=== PATIENT | male | born 1950 | race Caucasian/White ===

== ENCOUNTER 2023-07-26 06:03 | Day surgery (SDC) | payer MEDICARE, OTHER, SELFPAY ==
--- NOTE | 2023-07-07 10:37 | CM ---
Patient is scheduled for an elective L TKR on 07/26/23- he is a same day patient. Spoke with patient prior to surgery. Introduced role of Orthopedic Navigator. Patient reports that he lives with his in a two story home. There are two steps to
enter and a flight of steps to the second floor. He currently functions independently. He has a cane and rolling walker from his prior TKR in 2020 (done at an outside facility). He has had [facility] services. PCP is Dr. Darci Velez.
Discussed orthopedic program and post surgical plans. Reviewed that he will have VN services initially (medicare.gov website and ratings reviewed) and will then start outpatient PT. Patient selects [facility] (face sheet faxed to [facility] to facilitate
confirmation of benefits) for his home care needs and will go to [facility] for outpatient PT.
Patient is in agreement with plan and states that his will be home with him.
Patient will complete online education.
Plan: Orthopedic Navigator will remain available to assist with the care of patient and will reassess discharge needs after surgery.
[2023-07-12 08:07] VITALS: BMI 28.6
[2023-07-12 08:51] LABS: Hematocrit 40.7 % (39.0-52.0); Hemoglobin 14.8 g/dL (13.0-18.0); Mean Corp Hgb Conc. 36.4 g/dL (33.0-37.0); Mean Corpuscular Hgb 34.4 pg (27.0-31.0); Mean Corpuscular Volume 94.7 fL (80.0-94.0); Mean Platelet Volume 9.9 fL (7.4-10.4); Platelet Count 225 10^3/uL (130-400); Red Cell Dist. Width 11.8 % (11.5-14.5); White Blood Cell Count 5.5 10^3/uL (4.8-10.8)
[2023-07-12 09:00] LABS: ALT (SGPT) 30 U/L (0-50); AST (SGOT) 32 U/L (17-59); Albumin 4.1 g/dl (3.5-5.0); Alkaline Phosphatase 61 U/L (38-126); Blood Urea Nitrogen 15 mg/dl (9-20); Calcium 10.1 mg/dl (8.4-10.2); Carbon Dioxide 26 mmol/L (22-30); Chloride 100 mmol/L (98-107); Estimated Creatinine Clearance 77 ml/min; Glucose 98 mg/dl (70-99); Potassium 4.6 mmol/L (3.5-5.1); Sodium 136 mmol/L (135-145); Total Bilirubin 1.1 mg/dl (0.2-1.3); Total Protein 6.6 g/dl (6.3-8.2); eGFR > 60.00
[2023-07-12 09:31] LABS: Glycohemoglobin (HgbA1c) 5.2 % (4.0-5.6)
[2023-07-12 15:26] VITALS: BMI 28.6
[2023-07-26] VITALS (17 sets, daily range): BP systolic 83–156; BP diastolic 61–98; BMI 28.6
[2023-07-26] MEDS: CELEBREX 200 MG PO (06:26)
[2023-07-26] MEDS: TYLENOL 650 MG PO (06:26)
[2023-07-26] MEDS: NORMOSOL-R 1000 IV ×2 (06:26→09:15)
--- NOTE | 2023-07-26 06:49 | W.DS.TRANS ---
Addendum entered and electronically signed by Felicia Harden PA-C 07/26/23 12:00:
[facility] provided Ultram RX
disregard oxy on med list
Original Note:
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
-
Discharge Instructions:
Sleep Apnea Risk Intermediate
Discharge Diagnosis/Procedures L NAM [facility]ran 07/26/23
Diet As tolerated
Activity With Walker
Driving Restrictions No driving
Other Services PT,[facility]
Instructions:
Stand-Alone Forms: SDS Total Hip and Knee D/C
Changes to Home Medications: Yes
Discharge Medications:
DC Medications w/original date entered in eReceipts
folic acid 1 mg tablet 1 mg PO DAILY 06/20/17
lisinopril 10 mg tablet 10 mg PO DAILY 06/20/17
methotrexate sodium 2.5 mg tablet 7.5 mg PO WEEKLY 06/20/17
finasteride 5 mg tablet 5 mg PO DAILY 02/28/23
golimumab 12.5 mg/mL intravenous solution (Simponi ARIA) 100 mg IV Q8W 02/28/23
multivitamin 1 tab PO DAILY 02/28/23
rosuvastatin 20 mg tablet 20 mg PO DAILY 02/28/23
tamsulosin 0.4 mg capsule 0.4 mg PO QPM 02/28/23
oxycodone 5 mg tablet 5 - 10 mg PO Q4HPRN PRN moderate to severe pain #20 tabs 03/03/23
ibuprofen 200 mg tablet 400 mg PO Q6H PRN pain 07/10/23
mupirocin 2 % topical ointment 1 applic topical BID infection prevention #1 tube 07/12/23
acetaminophen 325 mg capsule (Tylenol) 650 mg PO QID #2 caps 07/26/23
aspirin 325 mg tablet 325 mg PO DAILY blood clot prevention #1 tab 07/26/23
celecoxib 200 mg capsule 200 mg PO DAILY anti-inflammatory #14 caps 07/26/23
docusate sodium 100 mg capsule (Colace) 100 mg PO BID stool softner #1 cap 07/26/23
magnesium hydroxide 400 mg/5 mL oral suspension (Milk of Magnesia) 30 ml PO HS PRN Constipation #1 mL 07/26/23
sennosides 8.6 mg tablet (Senokot) 17.2 mg PO BID laxative #2 tabs 07/26/23
Home Medication Changes
oxycodone 5 mg tablet 5 - 10 mg PO Q4HPRN PRN moderate to severe pain #20 tabs 03/03/23
celecoxib 200 mg capsule 200 mg PO DAILY anti-inflammatory #14 caps 07/26/23
Pending Results: No
--- NOTE | 2023-07-26 10:49 | CM ---
Patient had planned L TKR today. Met with patient and his at bedside to review discharge plans. Patient will be returning home today with services through [facility]. On Monday, 07/31, patient will start outpatient PT at [facility].
Reviewed MD follow up in two weeks and patient is aware of need to schedule appointment.
Patient has his rolling walker here with him.
PT and [facility] were kept updated as to progress and discharge plans.
[2023-07-26] MEDS: ANCEF 5 IV (10:58)
[2023-07-26] MEDS: ROXICODONE 5 MG PO (11:07)
[2023-07-26] MEDS: FLOMAX 0.800000000000000044 MG PO (11:15)
[2023-07-26] MEDS: ProAmatine 5 MG PO (11:42)
[2023-07-26] MEDS: PROSCAR 5 MG PO (11:50)
== END 2023-07-26 13:00 | disposition home health service (06) ==
LOC: SDS 06:03
PROVIDERS: ATTENDING PHYSICIAN Orthopaedic Surgery; FAMILY PHYSICIAN Family Medicine; OTHER PHYSICIAN Internal Medicine Cardiovascular Disease; OTHER PHYSICIAN Internal Medicine Rheumatology; REFERRING PHYSICIAN Physician Assistant Medical
DX: M17.12 Unilateral primary osteoarthritis, left knee (principal); M25.762 Osteophyte, left knee
CPT/HCPCS: 27447; 36415; 73560; 80053; 83036; 85027; 87070; 97162; C1713; C1776

== ENCOUNTER → 2023-09-11 07:22 | Outpatient (REF) | payer MEDICARE, OTHER, SELFPAY | LOC: HWRAD 07:22 | PROVIDERS: ATTENDING PHYSICIAN Family Medicine | DX: Z87.891 Personal history of nicotine dependence (principal); E04.1 Nontoxic single thyroid nodule | CPT/HCPCS: 71271; 76536 ==

== ENCOUNTER → 2024-09-03 07:58 | Outpatient (REF) | payer MEDICARE, OTHER, SELFPAY | LOC: RAD 07:58 | PROVIDERS: ATTENDING PHYSICIAN Family Medicine | DX: Z00.00 Encounter for general adult medical examination without abnormal findings (principal); R10.31 Right lower quadrant pain | CPT/HCPCS: 74177; Q9967 ==

== ENCOUNTER → 2024-09-11 07:34 | Outpatient (REF) | payer MEDICARE, OTHER, SELFPAY | LOC: HWRAD 07:34 | PROVIDERS: ATTENDING PHYSICIAN Family Medicine | DX: Z87.891 Personal history of nicotine dependence (principal) | CPT/HCPCS: 71271 ==

== ENCOUNTER → 2025-02-27 07:51 | Outpatient (REF) | payer MEDICARE, OTHER, SELFPAY | LOC: HWRAD 07:51 | PROVIDERS: ATTENDING PHYSICIAN Family Medicine | DX: E04.1 Nontoxic single thyroid nodule (principal) | CPT/HCPCS: 76536 ==